=== PATIENT | female | born 1995 | race Two or more races ===

== ENCOUNTER → 2019-03-06 | Outpatient (CLI) | payer OTHER, BC ==
[~2019-03-06] MED LIST: GADOBENATE 529MG/1ML 15ML VIAL IVP ONE; NS(*) 0.9% 50 ML BAG 50 ML ONE
--- NOTE | 2019-03-06 12:20 | RADIOLOGY IMAGING REPORT ---
FACILITY: [facility] PATIENT NAME: Monae Maldonado : 1995 MR: [id number] V: [id number] EXAM DATE: ORDERING PHYSICIAN: ANGIE HERRERA TECHNOLOGIST: Location: [facility] Patient: Monae Maldonado : 1995 Visit/Account:[id number] Date of Sevice: 03/06/2019 Examination: Pituitary MR without and with contrast History: Nipple discharge Comparison: None Technique: Multiplane pre and postcontrast imaging performed through the pituitary region. 10 mL Mul tiHance injected. Axial flair and axial diffusion sequences obtained through the brain. FINDINGS: No diffusion restriction, hydrocephalus or midline shift. Normal parenchymal signal. Normal optic chiasm. Midline and normal infundibulum. Normal cavernous sinuses. Normal sized pitui tary gland exhibits uniform enhancement without apparent microadenoma. No apparent suprasellar abnormality. IMPRESSION:. Normal pituitary MR without and with contrast. No abnormality seen to explain the nipple discharge. Report Dictated By: Tony Daneil MD at 03/06/2019 12:08 PM Report E-Signed By: Tony Daniel MD at 03/06/2019 12:15 PM WSN:[id number]
== END ==
LOC: MRI 08:38
PROVIDERS: ATTEND Nurse Practitioner Family
DX: N64.52 Nipple discharge (principal)
CPT/HCPCS: 70553; A9577; J7050